=== PATIENT | male | born 1995 | race American Indian/Alaskan Native ===

== ENCOUNTER 2021-08-05 16:12 | Emergency (ER) | payer OTHER ==
[2021-08-05 16:31] VITALS: BP 143/64
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
== END 2021-08-05 18:48 | disposition home or self-care (01) ==
LOC: ED 16:12
DX: S92.321A Displaced fracture of second metatarsal bone, right foot, initial encounter for closed fracture (principal); V89.2XXA Person injured in unspecified motor-vehicle accident, traffic, initial encounter; Y93.89 Activity, other specified; Y92.89 Other specified places as the place of occurrence of the external cause; Y99.8 Other external cause status
CPT/HCPCS: 99283